=== PATIENT | female | born 1980 | race Asian ===

== ENCOUNTER 2018-01-09 17:45 | Emergency (ER) | payer OTHER ==
[2018-01-09 20:06] LABS: ABS Basophils 0 10^3/ul (0-0.2); ABS Eosinophils 0.1 10^3/ul (0-0.6); ABS Lymphocytes 1.6 10^3/ul (1.0-4.8); ABS Monocytes 0.5 10^3/ul (0-0.8); ABS Nucleated RBC 0 10^3/ul; Eosinophil % 1.5 % (0-6); Hematocrit 36 % (35-47); Hemoglobin 12.2 g/dl (12.0-16.0); Lymphocyte % 21.7 % (25-47); Mean Corpuscular HGB Conc 34 g/dl (31-36); Mean Corpuscular Hemoglobin 33 pg (27-31); Mean Corpuscular Volume 97 fL (80-97); Mean Platelet Volume 7 um3 (7.4-10.4); Nucleated Red Blood Cells % 0; Platelet Count 341 10^3/ul (150-450); Red Blood Count 3.73 10^6/ul (4.0-5.4); Red Cell Distribution Width 13 % (10.5-15); White Blood Count 7.2 10^3/ul (3.5-10.8)
--- NOTE | 2018-01-09 20:15 | ED ---
- HPI Summary HPI Summary: 38-year-old female LMP Dec 06 presents with intermittent spotting since Jan 03. She thought it was her normal period but then stopped after one day. She states she took a test yesterday and was positive. She states she has been nausea. She states admits to abdominal pain starting yesterday. She admits to pain in her left lower quadrant that radiates to her back that started yesterday. Only previous surgeries that she has . She denies any fevers. She admits to chills. She denies any vomiting or diarrhea. She denies any pain with urination. She states the bleeding has stopped today. She was seen by obgyn and had hcg done but they did not have ultrasound capabilities so she was sent here. - History of Current Complaint Chief Complaint: EDVaginalBleeding Stated Complaint: POSS ECTOPIC , SENT BY OB Time Seen by Provider: 01/09/18 19:38 Pain Intensity: 5 - Allergies/Home Medications Allergies/Adverse Reactions: Allergies Allergy/AdvReac Type Severity Reaction Status Date / Time No Known Allergies Allergy Verified 09/04/15 09:52 PMH/Surg Hx/FS Hx/Imm Hx Endocrine/Hematology History: Denies: Hx Diabetes Cardiovascular History: Denies: Hx Hypertension, Hx Pacemaker/ICD Respiratory History: Denies: Hx Asthma History: Denies: Hx Renal Disease Sensory History: Denies: Hx Hearing Aid Psychiatric History: Denies: Hx Panic Disorder - Surgical History Surgery Procedure, Year, and Place: , ANKLE SURGERY, BIOPSY ON NECK Infectious Disease History: No Infectious Disease History: Denies: Traveled Outside the [place] in Last 30 Days - Family History Known Family History: Negative: Blood Disorder - Social History Alcohol Use: None Substance Use Type: Reports: None Smoking Status (MU): Never Smoked Tobacco Review of Systems Negative: Fever Negative: Chest Pain Negative: Shortness Of Breath Positive: Abdominal Pain, Other - vaginal bleeding All Other Systems Reviewed And Are Negative: Yes Physical Exam - Physical Exam Triage Information Reviewed: Yes Vital Signs Reviewed: Yes Appearance: Positive: Well-Appearing Skin: Positive: Warm, Dry Head/Face: Positive: Normal Head/Face Inspection Eyes: Positive: Normal, Conjunctiva Clear Respiratory/Lung Sounds: Positive: Clear to Auscultation, Breath Sounds Present Cardiovascular: Positive: Normal, RRR Abdomen Description: Positive: Soft, Other: - mild tenderness LLQ and suprapubic. Negative: CVA Tenderness (L) Bowel Sounds: Positive: Present Musculoskeletal: Positive: Normal Neurological: Positive: Normal Psychiatric: Positive: Normal Diagnostics - Vital Signs Vital Signs Temp Pulse Resp BP Pulse Ox 01/09/18 17:54 98.8 F 91 18 125/78 100 - Laboratory Lab Results: Lab Results 01/09/18 Range/Units 19:58 WBC 7.2 (3.5-10.8) 10^3/ul RBC 3.73 L (4.0-5.4) 10^6/ul Hgb 12.2 (12.0-16.0) g/dl Hct 36 (35-47) % MCV 97 (80-97) fL MCH 33 H (27-31) pg MCHC 34 (31-36) g/dl RDW 13 (10.5-15) % Plt Count 341 (150-450) 10^3/ul MPV 7 L (7.4-10.4) um3 Neut % (Auto) 69.7 (38-83) % Lymph % (Auto) 21.7 L (25-47) % Dickens % (Auto) 6.4 (0-7) % Eos % (Auto) 1.5 (0-6) % Baso % (Auto) 0.7 (0-2) % Absolute Neuts (auto) 5.0 (1.5-7.7) 10^3/ul Absolute Lymphs (auto) 1.6 (1.0-4.8) 10^3/ul Absolute Monos (auto) 0.5 (0-0.8) 10^3/ul Absolute Eos (auto) 0.1 (0-0.6) 10^3/ul Absolute Basos (auto) 0 (0-0.2) 10^3/ul Absolute Nucleated RBC 0 10^3/ul Nucleated RBC % 0 Result Diagrams: 01/09/18 19:58 01/09/18 19:58 Lab Statement: Any lab studies that have been ordered have been reviewed, and results considered in the medical decision making process. - Ultrasound No standard instances Ultrasound Interpretation: Positive (See Comments) - IMPRESSION: There is a single intrauterine gestation with a gestational age of 6 weeks 1 day. heart activity is noted at 109 bpm. No adnexal masses are noted. Estimated date of delivery is September 03, 2018. Ultrasound Interpretation Completed By: Radiologist Course/Dx - Course Course Of Treatment: 38-year-old female LMP Dec 06 presents with intermittent spotting since Jan 03. She thought it was her normal period but then stopped after one day. She states she took a test yesterday and was positive. She states she has been nausea. She states admits to abdominal pain starting yesterday. She admits to pain in her left lower quadrant that radiates to her back that started yesterday. Only previous surgeries that she has . She denies any fevers. She admits to chills. She denies any vomiting or diarrhea. She denies any pain with urination. She states the bleeding has stopped today. She was seen by obgyn and had hcg done but they did not have ultrasound capabilities so she was sent here. on exam has mild tenderness LLQ. transvaginal u/s shows intrauterine . labs wnl. will have follow up with obgyn for repeat hcg as may be miscarrying. patient understand and agrees with plan. - Differential Diagnosis/HQI/PQRI: Spontaneous , Threatened , Ectopic - Diagnoses Provider Diagnoses: Vaginal bleeding during Discharge - Discharge Plan Condition: Good Disposition: HOME Patient Education Materials: Threatened Miscarriage (ED) Referrals: Colette Ochoa MD [Primary Care Provider] - Additional Instructions: The education provided is for your information. You may or may not have a miscarriage at this point. Take Tylenol for pain every 6 hours as needed Follow up with OBGYN as will need repeat HCG level drawn to trend Return to ED if develop severe abdominal pain, fever, severe bleeding with symptoms such as lightheadedness or any new or worsening symptoms
[2018-01-09 20:21] LABS: EGFR Non-African American 99.2 (>60)
--- NOTE | 2018-01-09 21:05 | RAD ---
Indication: Vaginal bleeding. Abdominal pain. Real-time sonography of the was performed. There is a single intrauterine gestation noted with a gestational sac size of 1.4 cm corresponding to gestational age of 6 weeks 1 day. The pole is identified with a size of 3 mm corresponding to gestational age of 6 weeks 0 days. heart activity is noted at 109 bpm. The right ovary measures 3.2 x 1.8 x 2.3 cm. The left ovary measures 1.8 x 1.1 x 1.8 cm. There is Echo complex area in the right ovary measuring 2.2 x 1.4 x 1.9. IMPRESSION: There is a single intrauterine gestation with a gestational age of 6 weeks 1 day. heart activity is noted at 109 bpm. No adnexal masses are noted. Estimated date of delivery is September 03, 2018.
[2018-01-09 21:28] VITALS: BP 105/65
== END 2018-01-09 21:30 | disposition home or self-care (01) ==
LOC: ED 17:45
DX: O20.9 Hemorrhage in early pregnancy, unspecified (principal); R10.32 Left lower quadrant pain; Z3A.01 Less than 8 weeks gestation of pregnancy
CPT/HCPCS: 36415; 76817; 80053; 85025; 99282